=== PATIENT | female | born 1975 | race Caucasian/White ===

== ENCOUNTER → 2017-11-30 | Outpatient (CLI) | payer OTHER ==
--- NOTE | 2017-11-30 14:20 | DIAGNOSTIC IMAGING REPORT ---
R CLAVICLE COMPLETE HISTORY: 42 years-old Female RIGHT CLAVICLE PAIN acute right clavicle pain COMPARISON: None available TECHNIQUE: 2 views of the right clavicle FINDINGS: There is an acute transverse fracture of the mid diaphyseal right clavicle with apex cephalad angulation of 52 degrees. There is 3 mm superior displacement of the proximal clavicle in relation to the distal portion. The AC joint and glenohumeral joints appear maintained. No additional acute fracture or dislocation. Imaged lung ruiz appear clear. Mild associated soft tissue swelling. IMPRESSION: Acute angulated and minimally displaced fracture of the mid diaphyseal right clavicle. The above report was generated using voice recognition software. It may contain grammatical, syntax or spelling errors. Electronically signed by: Jone Diaz M.D. 11/30/2017 2:19 PM Dictated Date/Time: 11/30/2017 2:17 PM
== END | disposition home or self-care (01) ==
LOC: C.RDSM 13:46
PROVIDERS: ATTEND Physician Assistant
DX: T14.8XXA Other injury of unspecified body region, initial encounter (principal); X58.XXXA Exposure to other specified factors, initial encounter